=== PATIENT | male | born 1965 | race Caucasian/White ===

== ENCOUNTER 2016-05-08 16:29 | Emergency (ER) | payer SELFPAY ==
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
== END 2016-05-08 17:22 | disposition left against medical advice (07) ==
LOC: GACC 16:29
DX: M54.2 Cervicalgia (principal); R51 Headache; M25.562 Pain in left knee; V49.40XA Driver injured in collision with unspecified motor vehicles in traffic accident, initial encounter

== ENCOUNTER → 2016-05-08 | Outpatient (CLI) | payer SELFPAY | END | disposition disaster alternative care site (69) | LOC: GAMB 15:53 | DX: T14.90 Injury, unspecified (principal); M25.561 Pain in right knee ==